=== PATIENT | female | born 1995 | race American Indian/Alaskan Native ===

== ENCOUNTER 2019-03-08 10:32 | Emergency (ER) | payer SELFPAY ==
[2019-03-08 10:40] VITALS: BP 114/60
--- NOTE | 2019-03-08 11:11 | Emergency Department Report ---
ED Female HPI - General Chief complaint: Urogenital-Female Stated complaint: VAGINAL INFECTION/IRRITATION Time Seen by Provider: 03/08/19 11:00 Source: patient Mode of arrival: Ambulatory Limitations: No Limitations - History of Present Illness Initial comments: This is a 24-year-old female that presents to the emergency room with vaginal irritation and discharge for a few days. Last menstrual period 02/20/19, 0. Patient states she thought it was a yeast infection and applied 2 days of monistat vaginal cream to external labia. She reports yellow vaginal discharge, foul smelling, and painful rash to external labia. States unprotected intercourse with one male partner. Denies risk of due to IUD. Denies dysuria, urinary frequency, urgency, pelvic pain, and back pain. MD Complaint: vaginal discharge, possible STD Onset/Timin -: days(s) Location: labia Radiation: non-radiating Severity: mild Severity scale (0 -10): 0 Quality: aching Consistency: intermittent Improves with: none Worsens with: none Are you Now?: No Last Menstrual Period: 02/20/19 EDC: 11/27/19 Associated Symptoms: vaginal discharge. denies: vaginal bleeding, abdominal pain, nausea/vomiting, fever/chills, headaches, loss of appetite, dysuria, hematuria, rash, seizure, shortness of breath, syncope, weakness - Related Data Sexually active: Yes : 0 Para: 0 A: 0 Previous Rx's Medication Instructions Recorded Last Taken Type Fluconazole [Diflucan TAB] 150 mg PO ONCE #1 tablet 03/08/19 Unknown Rx Valacyclovir HCl [Valtrex] 1,000 mg PO BID #20 tablet 03/08/19 Unknown Rx metroNIDAZOLE [Flagyl TAB] 500 mg PO Q12HR #14 tab 03/08/19 Unknown Rx Allergies Allergy/AdvReac Type Severity Reaction Status Date / Time No Known Allergies Allergy Unverified 03/08/19 10:34 ED Review of Systems ROS: Stated complaint: VAGINAL INFECTION/IRRITATION Other details as noted in HPI Constitutional: denies: chills, fever Respiratory: denies: cough, shortness of breath, wheezing Cardiovascular: denies: chest pain, palpitations Gastrointestinal: denies: abdominal pain, nausea, diarrhea Genitourinary: discharge. denies: urgency, dysuria Musculoskeletal: denies: back pain, joint swelling, arthralgia Skin: rash (painful rash of labia). denies: lesions Neurological: denies: headache, weakness, paresthesias Psychiatric: denies: anxiety, depression ED Past Medical Hx - Past Medical History Previous Medical History?: No - Surgical History Past Surgical History?: No - Social History Smoking Status: Never Smoker Substance Use Type: Alcohol - Medications Home Medications: Home Medications Medication Instructions Recorded Confirmed Last Taken Type Fluconazole [Diflucan TAB] 150 mg PO ONCE #1 tablet 03/08/19 Unknown Rx Valacyclovir HCl [Valtrex] 1,000 mg PO BID #20 tablet 03/08/19 Unknown Rx metroNIDAZOLE [Flagyl TAB] 500 mg PO Q12HR #14 tab 03/08/19 Unknown Rx ED Physical Exam - General Limitations: No Limitations General appearance: alert, in no apparent distress - Respiratory Respiratory exam: Present: normal lung sounds bilaterally. Absent: respiratory distress - Cardiovascular Cardiovascular Exam: Present: regular rate, normal rhythm. Absent: systolic murmur, diastolic murmur, rubs, gallop - GI/Abdominal GI/Abdominal exam: Present: soft, normal bowel sounds. Absent: distended, tenderness, guarding, rebound, rigid - External exam: Present: erythema, lesions (vesicular rash to the labia majora, tenderness and crusting). Absent: swelling, lacerations, ecchymosis, bleeding Speculum exam: Present: erythema, vaginal discharge (malodorous yellowish thompson discharge). Absent: cervical discharge, vaginal bleeding, foreign body, tissue, laceration Bi-manual exam: Present: normal bi-manual exam. Absent: cervical motion tendernes - Back Exam Back exam: Absent: CVA tenderness (R), CVA tenderness (L) - Neurological Exam Neurological exam: Present: alert, oriented X3 - Psychiatric Psychiatric exam: Present: normal affect, normal mood - Skin Skin exam: Present: warm, dry, intact, normal color. Absent: rash ED Course Vital Signs 03/08/19 10:38 Temperature 98.6 F Pulse Rate 87 Respiratory 18 Rate Blood Pressure 114/60 O2 Sat by Pulse 97 Oximetry ED Medical Decision Making - Medical Decision Making This is a 24-year-old -Thai female who presents with vaginal discharge and painful vesicular rash to the external labia. Patient was examined by me. Vitals are stable and in no acute distress. Obtain a wet prep and gonorrhea and chlamydia via pelvic exam. Wet prep positive for clue cells and yeast, few polymorphonuclear cells seen, and negative trichomonas. Empirically treated with Rocephin 250 mg IM, and valacyclovir 1 g by mouth, and azithromycin 1 g by mouth. Discharged home in stable condition. Discussed prevention options. F/U with PCP or Health Department. Critical care attestation.: If time is entered above; I have spent that time in minutes in the direct care of this critically ill patient, excluding procedure time. ED Disposition Clinical Impression: Vaginal discharge, Vesicular rash, Herpes simplex type 2 infection, Bacterial vaginitis, Vulvovaginal candidiasis Disposition: TO HOME OR SELFCARE Is pt being admited?: No Does the pt Need Aspirin: No Condition: Stable Instructions: Bacterial Vaginosis (ED), Vulvovaginal Candidiasis (ED), Genital Herpes Simplex (ED) Additional Instructions: Avoid drinking alcohol while taking antibiotics and for 24 hours after completion. Continue safe sexual intercourse. Follow up with Primary Care Provider or health department. Prescriptions: Fluconazole [Diflucan TAB] 150 mg PO ONCE #1 tablet metroNIDAZOLE [Flagyl TAB] 500 mg PO Q12HR #14 tab Valacyclovir HCl [Valtrex] 1,000 mg PO BID #20 tablet Referrals: [facility] [place] [Outside] - 3-5 Days [facility] [Outside] - 3-5 Days [facility] [Outside] - 3-5 Days Forms: STI Treatment and Prevention Time of Disposition: 12:09
[2019-03-08] MEDS ORDERED: ROCEPHIN IM ONE (12:00)
[2019-03-08] MEDS ORDERED: XYLOCAINE 1% MPF 5 mL INFILTRATI ONE (12:00)
[2019-03-08] MEDS ORDERED: ZITHROMAX PO ONE (12:00)
[2019-03-08] MEDS ORDERED: VALTREX PO ONE (13:00)
== END 2019-03-08 12:52 | disposition home or self-care (01) ==
LOC: ED 10:32
DX: N76.0 Acute vaginitis (principal); B96.89 Other specified bacterial agents as the cause of diseases classified elsewhere; B37.3 Candidiasis of vulva and vagina; B00.1 Herpesviral vesicular dermatitis
CPT/HCPCS: 87210; 87591; 96372; 99283; J0696